=== PATIENT | male | born 1985 | race Caucasian/White ===

== ENCOUNTER 2019-06-12 02:44 | Emergency (ER) | payer BC ==
[~2019-06-12] VITALS: Ht 172.7 cm; Wt 74.8 kg
[2019-06-12 03:00] VITALS: BP 130/89
--- NOTE | 2019-06-12 03:00 | NUR ---
ER Nurse Note: Pt came from home c/o concern about having STD after unprotected sex with two different strangers on 06/10. Pt stated he has done this in the past but has not gotten tested before. Pt denies painful urination, no discharge, no difficulty urinating. Will continue to [place].
[2019-06-12] MEDS ORDERED: TRUVADA 200 MG1 EAC1 ORAL (03:22)
[2019-06-12] MEDS ORDERED: ISENTRESS400 MG ORAL (03:22)
--- NOTE | 2019-06-12 03:22 | Emergency Room Report ---
History of Present Illness General Chief Complaint: Male Urogenital Problems Source: Patient Present Illness HPI This is a 34-year-old male with no past medical history. He presents with chief complaint of exposure to HIV. He had unprotected sex 55 hours ago. He was concerned and requests PEP occasion. He had this similar issue before. He is not HIV positive. He denies any other complaint. No discharge. Allergies: Coded Allergies: No Known Allergies (Unverified , 06/12/19) Patient History Past Medical History: see triage record, old chart reviewed Past Surgical History: none Pertinent Family History: none Social History: Denies: smoking Immunizations: other Reviewed Nursing Documentation: PMH: Agreed; PSxH: Agreed Nursing Documentation-PMH Past Medical History: No Stated History Review of Systems Eye: Denies: eye pain, blurred vision ENT: Denies: ear pain, nose congestion, throat swelling Respiratory: Denies: cough, shortness of breath Cardiovascular: Denies: chest pain, palpitations Gastrointestinal: Denies: abdominal pain, diarrhea, nausea, vomiting Musculoskeletal: Denies: back pain, joint pain Skin: Denies: rash Neurological: Denies: headache, numbness Endocrine: Denies: increased thirst, increased urine Hematologic/Lymphatic: Denies: easy bruising All Other Systems: negative except mentioned in HPI Physical Exam Vital Signs Date Time Temp Pulse Resp B/P (MAP) Pulse Ox O2 Delivery O2 Flow Rate FiO2 06/12/19 02:53 98.1 101 18 130/89 (103) 98 Room Air Vitals normal Sp02 EP Interpretation: reviewed, normal General Appearance: well appearing, no apparent distress, alert Head: normocephalic, atraumatic Eyes: bilateral eye PERRL, bilateral eye EOMI ENT: hearing grossly normal, normal pharynx Neck: full range of motion, supple, no meningismus Respiratory: chest non-tender, lungs clear, normal breath sounds Cardiovascular #1: regular rate, rhythm, no murmur Gastrointestinal: normal bowel sounds, non tender, no mass, no organomegaly, no bruit, non-distended Musculoskeletal: back normal, gait/station normal, normal range of motion Psychiatric: mood/affect normal Medical Decision Making Diagnostic Impression: Primary Impression: History of exposure to blood or body fluid ER Course Patient with post exposure to bodily fluid. PEP given here. Will prescribe prescription. Last Vital Signs Date Time Temp Pulse Resp B/P (MAP) Pulse Ox O2 Delivery O2 Flow Rate FiO2 06/12/19 02:53 98.1 101 18 130/89 (103) 98 Room Air Status: unchanged Disposition: HOME, SELF-CARE Condition: Stable Scripts Emtricitabine/Tenofovir 200-300MG* (TRUVADA 200-300MG*) 1 Each Tablet 1 TAB ORAL DAILY, #28 TAB Prov: Mayur Matt MD 06/12/19 Raltegravir (Isentress) 400 Mg Tablet 400 MG ORAL EVERY 12 HOURS for 28 Days, TAB Prov: Mayur Matt MD 06/12/19 Additional Instructions: Follow-up with your doctor in 7 days. Return if symptoms worsen. Mayur Matt MD Jun 12, 2019 03:22
[2019-06-12] MEDS ORDERED: Isentress 400mg tab ORAL ONE (03:30)
[2019-06-12 03:42] VITALS: BP 130/89
--- NOTE | 2019-06-12 03:42 | NUR ---
ER Nurse Note: Pt seen, treated, medically cleared for discharge by ERMD. Discharge instuctions and prescriptions given with repeat verbalization by pt. Emphasized to follow up with primay care provider; take whole course of medication. Explained each medication. All orders completed per ERMD orders. Pt a&ox4, VSS, no signs of distress. ID band removed. All questions answered per pt's questions. Pt left with all belongings, left with own transportation.
== END 2019-06-12 03:42 | disposition home or self-care (01) ==
LOC: EMR 03:31
DX: Z20.6 Contact with and (suspected) exposure to human immunodeficiency virus [HIV] (principal)
CPT/HCPCS: 99282